=== PATIENT | female | born 1960 | race African-American/Black ===

== ENCOUNTER 2024-08-08 16:28 | Emergency (ER) | payer OTHER ==
[2024-08-08 16:40] VITALS: BP 137/73; PULSE 71; RESP 16; TEMP 98.3; BMI 16.0
== END 2024-08-08 18:12 | disposition left against medical advice (07) ==
LOC: JER 16:28
DX: R51.9 Headache, unspecified (principal); R07.9 Chest pain, unspecified
CPT/HCPCS: 93005; 93010; 99283-25